=== PATIENT | female | born 1980 | race Caucasian/White ===

== ENCOUNTER 2017-01-26 20:49 | Emergency (ER) | payer MEDICAID, OTHER ==
[~2017-01-26] VITALS: Ht 170.2 cm; Wt 80.0 kg
[~2017-01-26 20:49] MED LIST: FLUT50SP EACH NARE; NAPR500T PO; ONDA4TAB7 SL; PSYLPOW4 PO; SPIR25TA PO
[2017-01-26 21:08] VITALS: BP 116/79; PULSE 99; RESP 18; TEMP 99.4; O2SAT 97
[2017-01-26] MEDS ORDERED: CEFD300C PO (21:25)
--- NOTE | 2017-01-26 21:59 | PD ---
HPI Chief Complaint: Complaint Time Seen by Provider: 21:20 Travel History International Travel<30 days: No Contact w/Intl Traveler<30days: No Traveled to known affect area: No History of Present Illness HPI This 36-year-old female is complaining of some pain in her lower back. She's been having this for a couple of weeks. His been no vomiting or diarrhea. She went to her doctor and apparently had a vaginal swab which grew Escherichia coli. She was negative for gonorrhea and chlamydia. She has been on cefdinir. She is complaining of back pain is aggravated by movement. She does not recall injury there is no numbness or tingling PFSH Past Medical History Anxiety: Yes Depression: Yes Cancer: No Cardiovascular Problems: Yes (HX TRICUSPID DIS. 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) Genitourinary: Yes (HERPES VIRUS) Hepatitis: No Hiatal Hernia: No Hypertension: No Immune Disorder: No Musculoskeletal: Yes (BACK SPASMS, ARTHRITIS) Neurologic: No Psychiatric: Yes (ANXIETY, CLAUSTRAPHOBIA) Reproductive: No Respiratory: Yes (MARIJUANA ADDICTION) Shingles: Yes Thyroid Disease: No Tetanus Vaccination: Never Vaccinated PNEUMOCCOCAL Vaccine (Year): 2 ?: Not : 4 Para: 2 Miscarriage: 1 : 1 Ovarian Cysts: Yes Dilation and Curettage (D&C): Yes Tubal Ligation: Yes (right) Past Surgical History Abdominal Surgery: Yes (umbilical hernia repair) AICD: No Body Medical Devices: UMBILICAL MESH Ear Surgery: No Eye Surgery: No Genitourinary Surgery: No Gynecologic Surgery: Yes (D & C, RIGHT TUBAL LIGATION (CYSTIC)) Joint Replacement: No Oral Surgery: No Pacemaker: No Other Surgery: Yes Social History Alcohol Use: No Tobacco Use: Yes (10/24 ppd) Substance Use: No Allergies-Medications (Allergen,Severity, Reaction): Coded Allergies: Hydrocodone (Unverified Allergy, Intermediate, HIVES, UPSET STOMACH, ) Nonsteroidal Anti-Inflammatory Agts (Verified Allergy, Intermediate, Nausea/Vomiting, 01/26/17) Sulfa (Verified Allergy, Intermediate, Rash, 01/26/17) Toradol (Verified Allergy, Intermediate, UPSET STOMACH, 01/26/17) Tramadol (Verified Allergy, Intermediate, Rash, 01/26/17) Flagyl (Verified Adverse Reaction, Intermediate, UPSET STOMACH, 01/26/17) Uncoded Allergies: narcotics (Adverse Reaction, Mild, 01/26/17) stomach ache Reported Meds & Prescriptions Reported Meds & Active Scripts Active Spironolactone 25 Mg Tab 25 Mg PO BID Reported Cefdinir 300 Mg Cap 300 Mg PO BID Review of Systems General / Constitutional: No: Fever, Chills Eyes: No: Diploplia, Blurred Vision HENT: No: Headaches, Vertigo Cardiovascular: No: Chest Pain or Discomfort, Palpitations Respiratory: No: Shortness of Breath, Wheezing Gastrointestinal: No: Nausea, Vomiting Genitourinary: No: Urgency, Frequency Musculoskeletal: Positive: Myalgias, Pain, No: Arthralgias Skin: No Rash, No Itching Hematologic/Lymphatic: No: Easy Bruising Physical Exam Narrative GENERAL: Well-developed female SKIN: Focused skin assessment warm/dry. HEAD: Atraumatic. Normocephalic. EYES: Pupils equal and round. No scleral icterus. No injection or drainage. ENT: No nasal bleeding or discharge. Mucous membranes pink and moist. NECK: Trachea midline. No JVD. CARDIOVASCULAR: Regular rate and rhythm. No murmur appreciated. RESPIRATORY: No accessory muscle use. Clear to auscultation. Breath sounds equal bilaterally. GASTROINTESTINAL: Abdomen soft, non-tender, nondistended. Hepatic and splenic margins not palpable. MUSCULOSKELETAL: No obvious deformities. No clubbing. No cyanosis. No edema. There is some tenderness in the low back. It is not well localized. NEUROLOGICAL: Awake and alert. No obvious cranial nerve deficits. Motor grossly within normal limits. Normal speech. Leg strength is symmetric PSYCHIATRIC: Appropriate mood and affect; insight and judgment normal. Data Data Last Documented VS Vital Signs Date Time Temp Pulse Resp B/P Pulse Ox O2 Delivery O2 Flow Rate FiO2 01/26/17 21:08 99.4 99 18 116/79 97 Orders Complete Blood Count With Diff (01/26/17 21:57) Basic Metabolic Panel (Bmp) (01/26/17 21:57) Urinalysis - C+S If Indicated (01/26/17 21:57) Labs Laboratory Tests Test 01/26/17 01/26/17 22:00 22:09 Urine Color YELLOW Urine Turbidity CLEAR Urine pH 6.0 Urine Specific [place] 1.007 Urine Protein NEG mg/dL Urine Glucose (UA) NEG mg/dL Urine Ketones NEG mg/dL Urine Occult Blood TRACE Urine Nitrite NEG Urine Bilirubin NEG Urine Leukocyte Esterase SMALL Urine RBC 0-3 /hpf Urine WBC 0-2 /hpf Urine Squamous Epithelial > 8 /hpf Cells Microscopic Urinalysis Comment CULT NOT INDICATED White Blood Count 8.0 TH/MM3 Red Blood Count 3.97 MIL/MM3 Hemoglobin 12.5 GM/DL Hematocrit 37.7 % Mean Corpuscular Volume 94.8 FL Mean Corpuscular Hemoglobin 31.4 PG Mean Corpuscular Hemoglobin 33.2 % Concent Red Cell Distribution Width 12.8 % Platelet Count 255 TH/MM3 Mean Platelet Volume 7.7 FL Neutrophils (%) (Auto) 56.0 % Lymphocytes (%) (Auto) 34.4 % Monocytes (%) (Auto) 6.4 % Eosinophils (%) (Auto) 2.8 % Basophils (%) (Auto) 0.4 % Neutrophils # (Auto) 4.5 TH/MM3 Lymphocytes # (Auto) 2.8 TH/MM3 Monocytes # (Auto) 0.5 TH/MM3 Eosinophils # (Auto) 0.2 TH/MM3 Basophils # (Auto) 0.0 TH/MM3 CBC Comment DIFF FINAL Differential Comment Sodium Level 139 MEQ/L Potassium Level 4.0 MEQ/L Chloride Level 107 MEQ/L Carbon Dioxide Level 25.0 MEQ/L Anion Gap 7 MEQ/L Blood Urea Nitrogen 7 MG/DL Creatinine 0.68 MG/DL Estimat Glomerular Filtration 97 ML/MIN Rate Random Glucose 115 MG/DL Calcium Level 9.1 MG/DL [facility] Medical Decision Making Medical Screen Exam Complete: Yes Emergency Medical Condition: Yes Medical Record Reviewed: Yes Differential Diagnosis Differential includes UTI, renal colic, musculoskeletal back pain Narrative Course Blood work and urine are negative. This is musculoskeletal back pain. She has trouble with her stomach and cannot take anti-inflammatory medications. I will recommend that she take Tylenol and Flexeril Diagnosis Primary Impression: Musculoskeletal back pain Scripts Cyclobenzaprine (Flexeril)10 Mg Tab10 Mg PO TID #30 TAB Ref 0 Prov:Luis Angel Sidhu MD 01/26/17 Disposition: 01 DISCHARGE HOME Condition: Stable Luis Angel Sidhu MD Jan 26, 2017 21:59
[2017-01-26 22:08] LABS: BLOOD, URINE TRACE (NEG); GLUCOSE,URINE NEG (NEG); KETONE, URINE NEG (NEG); NITRITE,URINE NEG (NEG)
[2017-01-26 22:12] LABS: URINE COLOR YELLOW (YELLW/STRAW)
[2017-01-26 22:13] LABS: COMMENT (UR) CULT NOT INDICATED; CULTURE IF INDICATED CULT NOT INDICATED; RBC, URINE 0-3 /hpf (0-3); SQUAMOUS EPITHELIAL CELL URINE > 8 /hpf (0-5); WBC, URINE 0-2 /hpf (0-5)
[2017-01-26 22:18] LABS: AUTOMATED NEUTROPHIL # 4.5 TH/MM3 (1.8-7.7); BASOPHIL % 0.4 % (0.0-2.0); EOSINOPHIL # 0.2 TH/MM3 (0-0.4); EOSINOPHIL % 2.8 % (0.0-4.0); HEMATOCRIT 37.7 % (35.0-46.0); HEMO FLAGS DIFF FINAL; LYMPH % 34.4 % (9.0-44.0); LYMPHOCYTE # 2.8 TH/MM3 (1.0-4.8); MEAN CELL VOLUME 94.8 FL (80.0-100.0); MEAN CORPUSCULAR HEMOGLOBIN 31.4 PG (27.0-34.0); MEAN CORPUSCULAR HGB CONC 33.2 % (32.0-36.0); MONO % 6.4 % (0.0-8.0); PLATELET COUNT 255 TH/MM3 (150-450); RED BLOOD COUNT 3.97 MIL/MM3 (4.00-5.30); RED CELL DISTRIBUTION WIDTH 12.8 % (11.6-17.2)
[2017-01-26] MEDS ORDERED: CYCL1TAB29 PO (23:14)
[2017-01-26] MEDS ORDERED: ACETAMINOPHEN 325 MG TAB PO ONE (23:15)
[2017-01-30] MEDS ORDERED: SPIR25TA PO (11:42)
[2017-02-09] MEDS ORDERED: FLUC150T PO (15:04)
[2017-02-09] MEDS ORDERED: CLIN2CRE VAGINAL (15:04)
[2017-03-08] MEDS ORDERED: ZOFR4TAB3 SL (17:13)
[2017-03-08] MEDS ORDERED: SPIR25TA PO (17:13)
[2017-04-12] MEDS ORDERED: SPIR25TA PO (23:21)
== END 2017-01-26 23:43 | disposition home or self-care (01) ==
LOC: PHED 20:49
DX: M54.5 Low back pain (principal); F17.200 Nicotine dependence, unspecified, uncomplicated; Z86.59 Personal history of other mental and behavioral disorders; Z86.79 Personal history of other diseases of the circulatory system; Z87.19 Personal history of other diseases of the digestive system; Z87.448 Personal history of other diseases of urinary system; Z87.39 Personal history of other diseases of the musculoskeletal system and connective tissue; Z86.69 Personal history of other diseases of the nervous system and sense organs; Z87.42 Personal history of other diseases of the female genital tract
CPT/HCPCS: 80048; 81001; 85025; 99283

== ENCOUNTER 2017-06-04 21:23 | Emergency (ER) | payer MEDICAID, OTHER ==
[~2017-06-04] VITALS: Ht 170.2 cm; Wt 78.7 kg
[~2017-06-04 21:23] MED LIST changes: +CLIN2CRE VAGINAL; +CYCL1TAB29 PO; +FLUC150T PO; -FLUT50SP EACH NARE; -NAPR500T PO; -ONDA4TAB7 SL; -PSYLPOW4 PO; +ZOFR4TAB3 SL
[2017-06-04 21:29] VITALS: BP 123/64; PULSE 84; RESP 20; TEMP 98.8; O2SAT 99
--- NOTE | 2017-06-04 22:00 | PD ---
HPI Chief Complaint: Back/ Neck Pain or Injury Time Seen by Provider: 21:52 Travel History International Travel<30 days: No Contact w/Intl Traveler<30days: No Traveled to known affect area: No History of Present Illness HPI 36-year-old female presents to the emergency room for evaluation of acute on chronic back pain. Patient started a new job 3 weeks ago and states over the past week she has had increasing mid, bilateral back pain. States she had to leave work early on because her pain was severe. She has tried Tylenol , back braces, and NSAIDs without any relief in symptoms. 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 States after 1-2 hours of doing this she begins to develop severe, sharp , aching back pain. PFSH Past Medical History Anxiety: Yes Depression: Yes Cancer: No Cardiovascular Problems: Yes (HX TRICUSPID DIS. 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) Genitourinary: Yes (HERPES VIRUS) Hepatitis: No Hiatal Hernia: No Hypertension: No Immune Disorder: No Musculoskeletal: Yes (BACK SPASMS, ARTHRITIS) Neurologic: No Psychiatric: Yes (ANXIETY, CLAUSTRAPHOBIA) Reproductive: No Respiratory: Yes (MARIJUANA ADDICTION) Immunizations Current: Yes Shingles: Yes Thyroid Disease: No Tetanus Vaccination: > 5 Years Influenza Vaccination: No PNEUMOCCOCAL Vaccine (Year): 2 ?: Not LMP: now : 4 Para: 2 Miscarriage: 1 : 1 Ovarian Cysts: Yes Dilation and Curettage (D&C): Yes Tubal Ligation: Yes (right) Past Surgical History Abdominal Surgery: Yes (umbilical hernia repair) AICD: No Body Medical Devices: UMBILICAL MESH Ear Surgery: No Eye Surgery: No Genitourinary Surgery: No Gynecologic Surgery: Yes (D & C, RIGHT TUBAL LIGATION (CYSTIC)) Joint Replacement: No Oral Surgery: No Pacemaker: No Other Surgery: Yes Social History Alcohol Use: No Tobacco Use: Yes (/2 ppd) Substance Use: No Allergies-Medications (Allergen,Severity, Reaction): Coded Allergies: Hydrocodone (Unverified Allergy, Intermediate, HIVES, UPSET STOMACH, ) Nonsteroidal Anti-Inflammatory Agts (Verified Allergy, Intermediate, Nausea/Vomiting, 02/09/17) Sulfa (Verified Allergy, Intermediate, Rash, 02/09/17) Toradol (Verified Allergy, Intermediate, UPSET STOMACH, 02/09/17) Tramadol (Verified Allergy, Intermediate, Rash, 02/09/17) Flagyl (Verified Adverse Reaction, Intermediate, UPSET STOMACH, 02/09/17) Uncoded Allergies: narcotics (Adverse Reaction, Mild, 01/26/17) stomach ache Reported Meds & Prescriptions Reported Meds & Active Scripts Active Spironolactone 25 Mg Tab 25 Mg PO BID Zofran Odt (Ondansetron Odt) 4 Mg Tab 4 Mg SL Q6HR PRN Clindamycin Vaginal Cream (Clindamycin Phosphate) 2% Cream 1 Appl VAGINAL HS Fluconazole 150 Mg Tab 150 Mg PO ONCE Flexeril (Cyclobenzaprine HCl) 10 Mg Tab 10 Mg PO TID Review of Systems Except as stated in HPI: all other systems reviewed are Neg Physical Exam Narrative GENERAL: Well-nourished, well-developed female in no acute distress. Afebrile. Ambulatory. SKIN: Focused skin assessment warm/dry. HEAD: Normocephalic. EYES: No scleral icterus. No injection or drainage. NECK: Supple, trachea midline. No JVD or lymphadenopathy. CARDIOVASCULAR: Regular rate and rhythm without murmurs, gallops, or rubs. RESPIRATORY: Breath sounds equal bilaterally. No accessory muscle use. BACK: Nontender without obvious deformity. No CVA tenderness. Data Data Last Documented VS Vital Signs Date Time Temp Pulse Resp B/P Pulse Ox O2 Delivery O2 Flow Rate FiO2 06/04/17 21:29 98.8 84 20 123/64 99 MDM Medical Decision Making Medical Screen Exam Complete: Yes Emergency Medical Condition: Yes Medical Record Reviewed: Yes Differential Diagnosis Acute on chronic back pain, muscle strain, muscle spasm Narrative Course 36-year-old female presents to the emergency room for evaluation of mid back pain for the past week. 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 Denies trauma or injury to her back. No midline tenderness. I suspect patient has thoracic back strain from reaching over a conveyor belt for 12 hours at a time in this new setting. She was instructed that exercising her back and building muscle will decrease pain. Patient was told to take Tylenol for pain and follow up with primary care physician or return for worsening symptoms. She understands and agrees to plan. Diagnosis Primary Impression: Upper back strain Qualified Code: S29.012A - Upper back strain, initial encounter Referrals: Primary Care Physician Patient Instructions: General Instructions, Thoracic Back Strain (ED) Departure Forms: Tests/Procedures, Work Release Enter return to work date: Jun 06, 2017 Additional Instructions: Rest and drink plenty of fluids. Take Tylenol as directed, as needed for pain. Apply ice to the affected area for 20 minutes at a time, as needed for pain and swelling. Follow-up with a primary care physician. Return to the emergency room for worsening symptoms. Disposition: 01 DISCHARGE HOME Condition: Stable Sarah Beth Hussein Jun 04, 2017 22:00
[2017-06-05] MEDS ORDERED: PROZ20CA11 PO (14:38)
[2017-06-05] MEDS ORDERED: LUMBAR BACK BRA1 MIS ×2 (14:40→16:37)
[2017-06-09] MEDS ORDERED: MEDR150I IM (10:58)
[2017-06-09] MEDS ORDERED: DEPO150I IM (14:36)
[2017-06-14] MEDS ORDERED: METR500T10 PO (11:03)
[2017-06-14] MEDS ORDERED: CLIN2CRE VAGINAL (11:03)
== END 2017-06-04 22:17 | disposition home or self-care (01) ==
LOC: PHEFT 21:23
DX: S29.012A Strain of muscle and tendon of back wall of thorax, initial encounter (principal); F17.200 Nicotine dependence, unspecified, uncomplicated; Z86.59 Personal history of other mental and behavioral disorders; Z86.79 Personal history of other diseases of the circulatory system; Z87.19 Personal history of other diseases of the digestive system; Z87.448 Personal history of other diseases of urinary system; Z87.39 Personal history of other diseases of the musculoskeletal system and connective tissue; Z86.69 Personal history of other diseases of the nervous system and sense organs; X58.XXXA Exposure to other specified factors, initial encounter
CPT/HCPCS: 99282

== ENCOUNTER 2017-07-04 16:34 | Emergency (ER) | payer SELFPAY ==
[~2017-07-04 16:34] MED LIST changes: +LUMBAR BACK BRA1 MIS; +MEDR150I IM; +METR500T10 PO; +PROZ20CA11 PO
[2017-07-04 16:37] VITALS: BP 129/94; PULSE 83; RESP 20; TEMP 97.8; O2SAT 98
== END 2017-07-04 19:05 | disposition left against medical advice (07) ==
LOC: PHED 16:34
DX: Z53.9 Procedure and treatment not carried out, unspecified reason (principal)
CPT/HCPCS: 99281

== ENCOUNTER 2017-09-08 18:21 | Emergency (ER) | payer OTHER ==
[~2017-09-08] VITALS: Ht 170.2 cm; Wt 81.0 kg
[~2017-09-08 18:21] MED LIST changes: +CYCL10TA PO; -CYCL1TAB29 PO; +METR1TAB76 PO; -METR500T10 PO
[2017-09-08 18:26] VITALS: BP 139/66; PULSE 82; RESP 16; TEMP 97.6; O2SAT 100
--- NOTE | 2017-09-08 18:50 | PD ---
HPI Chief Complaint: GI Complaint Time Seen by Provider: 18:38 Travel History International Travel<30 days: No Contact w/Intl Traveler<30days: No Traveled to known affect area: No History of Present Illness HPI The patient is a 36-year-old female who presents emergency department for medication request. The patient is requesting that we refill and inject her control, Depo-Provera. The patient states that she last had her Depo- Provera injection several months ago, called her pharmacy and they stated she was due for Depo-Provera. However, the patient with her primary physician normally writes for her Depo-Provera and found out that they would no longer see her because she missed several appointments. The patient states she missed several appointments because she is in a working pool and sometimes doesn't know she is going to work till that day. The patient is followed by a shoer in [place], [place]. The patient states she's had some mild nausea since she has not received her Depo-Provera as well as occasional intermittent abdominal pain that she contributes to her ovarian cysts that she gets monthly. She does note feeling episodes of nausea without any significant vomiting and was able to tolerate soda on the way to the emergency department. She denies any fever, chills, or sweats. 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) Genitourinary: Yes (HERPES VIRUS) Hepatitis: No Hiatal Hernia: No Hypertension: No Immune Disorder: No Musculoskeletal: Yes (BACK SPASMS, ARTHRITIS) Neurologic: No Psychiatric: Yes (ANXIETY, CLAUSTRAPHOBIA) Reproductive: No Respiratory: Yes (MARIJUANA ADDICTION) Immunizations Current: Yes Shingles: Yes Thyroid Disease: No Influenza Vaccination: No PNEUMOCCOCAL Vaccine (Year): 2 ?: Not : 4 Para: 2 Miscarriage: 1 : 1 Ovarian Cysts: Yes Dilation and Curettage (D&C): Yes Tubal Ligation: Yes (right) Past Surgical History Abdominal Surgery: Yes (umbilical hernia repair) AICD: No Body Medical Devices: UMBILICAL MESH Ear Surgery: No Eye Surgery: No Genitourinary Surgery: No Gynecologic Surgery: Yes (D & C, RIGHT TUBAL LIGATION (CYSTIC)) Joint Replacement: No Oral Surgery: No Pacemaker: No Other Surgery: Yes Social History Alcohol Use: No Tobacco Use: No Substance Use: No Allergies-Medications (Allergen,Severity, Reaction): Coded Allergies: Sulfa (Sulfonamide Antibiotics) (Unverified Allergy, Intermediate, Rash, 09/08/17) diclofenac (Unverified Allergy, Intermediate, Nausea/Vomiting, 09/08/17) etodolac (Unverified Allergy, Intermediate, Nausea/Vomiting, 09/08/17) flurbiprofen (Unverified Allergy, Intermediate, Nausea/Vomiting, 09/08/17) hydrocodone (Unverified Allergy, Intermediate, HIVES, UPSET STOMACH, 09/08) ibuprofen (Unverified Allergy, Intermediate, Nausea/Vomiting, 09/08/17) indomethacin (Unverified Allergy, Intermediate, Nausea/Vomiting, 09/08/17) ketoprofen (Unverified Allergy, Intermediate, Nausea/Vomiting, 09/08/17) ketorolac (Unverified Allergy, Intermediate, UPSET STOMACH, 09/08/17) naproxen (Unverified Allergy, Intermediate, Nausea/Vomiting, 09/08/17) oxaprozin (Unverified Allergy, Intermediate, Nausea/Vomiting, 09/08/17) tramadol (Unverified Allergy, Intermediate, Rash, 09/08/17) metronidazole (Unverified Adverse Reaction, Intermediate, UPSET STOMACH, 09/08/17) Uncoded Allergies: narcotics (Adverse Reaction, Mild, 01/26/17) stomach ache Reported Meds & Prescriptions Reported Meds & Active Scripts Active Medroxyprogesterone Inj 150 Mg/Ml Inj 150 Mg IM ONCE Spironolactone 25 Mg Tab 25 Mg PO BID Review of Systems Except as stated in HPI: all other systems reviewed are Neg Cardiovascular: No: Chest Pain or Discomfort Respiratory: No: Shortness of Breath Gastrointestinal: Positive: Nausea, No: Abdominal Pain Genitourinary: Positive: Pelvic Pain Physical Exam Narrative GENERAL: Awake, alert, pleasant 36-year-old female who appears her stated age and is in no acute respiratory distress. SKIN: Focused skin assessment warm/dry. HEAD: Atraumatic. Normocephalic. EYES: No injection or drainage. MUSCULOSKELETAL: No obvious deformities. No clubbing. No cyanosis. No edema. NEUROLOGICAL: Awake and alert. No obvious cranial nerve deficits. Motor grossly within normal limits. Normal speech. PSYCHIATRIC: Appropriate mood and affect; insight and judgment normal. Data Data Last Documented VS Vital Signs Date Time Temp Pulse Resp B/P (MAP) Pulse Ox O2 Delivery O2 Flow Rate FiO2 09/08/17 18:26 97.6 82 16 139/66 (90) 100 MDM Medical Decision Making Medical Screen Exam Complete: Yes Emergency Medical Condition: Yes Medical Record Reviewed: Yes Differential Diagnosis Differential diagnosis includes medication requests, medication refill, gastritis, gastroenteritis, ovarian cyst. Narrative Course I had a discussion with the patient regarding her shoer refilling her Depo-Provera. I told the patient I do not refill control or control injections in emergency department. She is advised to follow-up with her shoer. I did offer the patient to do a workup in regards to her nausea, vomiting, and abdominal pain. However, she declined and states she will follow-up with her shoer. The patient states she simply wanted her Depo-Provera injection and wants no further workup or analysis. Diagnosis Primary Impression: Encounter for medication management Patient Instructions: General Instructions Additional Instructions: Follow-up with your shoer in regards to your Depo-Provera. Return if symptoms worsen or progress. Med/Other Pt SpecificInfo: No Change to Meds Disposition: 01 DISCHARGE HOME Condition: Stable Marvin Watkins MD Sep 08, 2017 18:50
[2017-09-11] MEDS ORDERED: SPIR25TA PO (12:43)
[2017-09-11] MEDS ORDERED: MEDR150I IM (15:22)
== END 2017-09-08 19:10 | disposition home or self-care (01) ==
LOC: PHED 18:21
DX: R11.0 Nausea (principal); Z30.42 Encounter for surveillance of injectable contraceptive
CPT/HCPCS: 99281

== ENCOUNTER 2017-11-12 10:26 | Emergency (ER) | payer OTHER ==
[~2017-11-12] VITALS: Ht 170.2 cm; Wt 74.5 kg
[~2017-11-12 10:26] MED LIST changes: -CLIN2CRE VAGINAL; -CYCL10TA PO; -FLUC150T PO; -LUMBAR BACK BRA1 MIS; -METR1TAB76 PO; -PROZ20CA11 PO; -ZOFR4TAB3 SL
[2017-11-12 10:31] VITALS: BP 118/74; PULSE 118; RESP 12; TEMP 98.7; O2SAT 99
[2017-11-12] MEDS ORDERED: MEBE1CHW14 PO (11:20)
--- NOTE | 2017-11-12 11:25 | PD ---
HPI Chief Complaint: Skin Problem Time Seen by Provider: 11:03 Travel History International Travel<30 days: No Contact w/Intl Traveler<30days: No Traveled to known affect area: No History of Present Illness HPI The patient was seen and examined in the presence of the nurse. At no point in time was I in the room without the nurse present. This patient is concerned that she has worms in her stool. She says that she saw them after bowel movement and they were moving. She is denying abdominal or pelvic or rectal pain. She said she discuss this with her primary physician but she couldn't give a sample because she was constipated at the time so no treatment was given. Symptoms severity is mild. 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) Genitourinary: Yes (HERPES VIRUS) Hepatitis: No Hiatal Hernia: No Hypertension: No Immune Disorder: No Musculoskeletal: Yes (BACK SPASMS, ARTHRITIS) Neurologic: No Psychiatric: Yes (ANXIETY, CLAUSTRAPHOBIA) Reproductive: No Respiratory: Yes (MARIJUANA ADDICTION) Immunizations Current: Yes Shingles: Yes Thyroid Disease: No PNEUMOCCOCAL Vaccine (Year): 2 ?: Not : 4 Para: 2 Miscarriage: 1 : 1 Ovarian Cysts: Yes Dilation and Curettage (D&C): Yes Tubal Ligation: Yes (right) Past Surgical History Abdominal Surgery: Yes (umbilical hernia repair) AICD: No Body Medical Devices: UMBILICAL MESH Ear Surgery: No Eye Surgery: No Genitourinary Surgery: No Gynecologic Surgery: Yes (D & C, RIGHT TUBAL LIGATION (CYSTIC)) Joint Replacement: No Oral Surgery: No Pacemaker: No Other Surgery: Yes Social History Alcohol Use: No Tobacco Use: No Substance Use: No Allergies-Medications (Allergen,Severity, Reaction): Coded Allergies: Sulfa (Sulfonamide Antibiotics) (Unverified Allergy, Intermediate, Rash, ) diclofenac (Unverified Allergy, Intermediate, Nausea/Vomiting, 11/12/17) etodolac (Unverified Allergy, Intermediate, Nausea/Vomiting, 11/12/17) flurbiprofen (Unverified Allergy, Intermediate, Nausea/Vomiting, 11/12/17) hydrocodone (Unverified Allergy, Intermediate, HIVES, UPSET STOMACH, ) ibuprofen (Unverified Allergy, Intermediate, Nausea/Vomiting, 11/12/17) indomethacin (Unverified Allergy, Intermediate, Nausea/Vomiting, 11/12/17) ketoprofen (Unverified Allergy, Intermediate, Nausea/Vomiting, 11/12/17) ketorolac (Unverified Allergy, Intermediate, UPSET STOMACH, 11/12/17) naproxen (Unverified Allergy, Intermediate, Nausea/Vomiting, 11/12/17) oxaprozin (Unverified Allergy, Intermediate, Nausea/Vomiting, 11/12/17) tramadol (Unverified Allergy, Intermediate, Rash, 11/12/17) metronidazole (Unverified Adverse Reaction, Intermediate, UPSET STOMACH, ) Uncoded Allergies: narcotics (Adverse Reaction, Mild, 01/26/17) stomach ache Reported Meds & Prescriptions Reported Meds & Active Scripts Active Medroxyprogesterone Inj 150 Mg/Ml Inj 150 Mg IM ONCE Spironolactone 25 Mg Tab 25 Mg PO BID Review of Systems General / Constitutional: No: Fever HENT: No: Headaches Cardiovascular: No: Chest Pain or Discomfort Physical Exam Narrative GASTROINTESTINAL: Abdomen soft, non-tender, nondistended. Positive bowel sounds. No hepato-splenomegaly, or palpable masses. No guarding. SKIN: Focused skin assessment reveals no rash or ulcers. Skin is warm and dry. Palpation shows no induration or nodules. Patient has multiple picked at scabbed lesions on both forearms. These do not look infectious Data Data Last Documented VS Vital Signs Date Time Temp Pulse Resp B/P (MAP) Pulse Ox O2 Delivery O2 Flow Rate FiO2 11/12/17 10:31 98.7 118 12 118/74 (89) 99 MDM Medical Decision Making Medical Screen Exam Complete: Yes Emergency Medical Condition: Yes Medical Record Reviewed: Yes Differential Diagnosis psychiatric delusion, pinworms, Giardia Narrative Course I have reviewed the patient's electronic medical record. This patient is concerned about having pinworms. I'm not sure she has them or not. I did write her a movement is all treatment and she can repeat it in 2 weeks for a near 100% cure rate of pinworms She should discuss with her family physician Stable for outpatient follow-up Diagnosis Primary Impression: Pinworms Additional Instructions: The patient was advised to follow up with their physician and return if they worsen. Med/Other Pt SpecificInfo: Prescription(s) given Scripts Mebendazole (Emverm) 100 Mg Chew 100 MG PO ONCE for Worms, #2 TAB 0 Refills Prov: Carlos Allen MD 11/12/17 Disposition: 01 DISCHARGE HOME Condition: Stable Carlos Allen MD Nov 12, 2017 11:25
== END 2017-11-12 11:34 | disposition home or self-care (01) ==
LOC: NEPD 10:26
DX: B80 Enterobiasis (principal); F41.9 Anxiety disorder, unspecified; F32.9 Major depressive disorder, single episode, unspecified; M19.90 Unspecified osteoarthritis, unspecified site; F40.240 Claustrophobia; F12.20 Cannabis dependence, uncomplicated; Z87.19 Personal history of other diseases of the digestive system; Z79.899 Other long term (current) drug therapy; Z88.2 Allergy status to sulfonamides
CPT/HCPCS: 99283

== ENCOUNTER 2017-11-13 18:05 | Emergency (ER) | payer OTHER | END 2017-11-13 21:57 | disposition left against medical advice (07) | LOC: NED 21:57 | DX: K62.5 Hemorrhage of anus and rectum (principal) | CPT/HCPCS: 99281 ==

== ENCOUNTER 2017-11-14 13:34 | Emergency (ER) | payer OTHER ==
[~2017-11-14 13:34] MED LIST changes: +MEBE1CHW14 PO
[2017-11-14 13:40] VITALS: BP 115/73; PULSE 101; RESP 16; TEMP 98.5; O2SAT 100
[2017-11-14] MEDS ORDERED: SODIUM CHLORIDE 0.9% FLUSH 10 ML FLUSH IV FLUSH PRN (14:30)
[2017-11-14] MEDS ORDERED: ADDE30TA PO (14:37)
--- NOTE | 2017-11-14 14:40 | PD ---
HPI Chief Complaint: GI Complaint Time Seen by Provider: 14:25 Travel History International Travel<30 days: No Contact w/Intl Traveler<30days: No Traveled to known affect area: No History of Present Illness HPI 37 y/o female presents with concerned that now she is having intermittent rectal bleeding and abdominal cramping and that the parasites are not going away. She states that she is concerned that she could be anemic. She states that she knows she doesn't have pinworms because those are small and she cannot afford the medication and he weighs. Quality is bright red. Severity is a couple episodes. She is worried she has not had blood work yet. She denies any other concurrent complaints. Patient was seen in the presence of the nurse. 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) Genitourinary: Yes (HERPES VIRUS) Hepatitis: No Hiatal Hernia: No Hypertension: No Immune Disorder: No Medical other: No Musculoskeletal: Yes (BACK SPASMS, ARTHRITIS) Neurologic: No Psychiatric: Yes (ANXIETY, CLAUSTRAPHOBIA) Reproductive: No Respiratory: Yes (MARIJUANA ADDICTION) Immunizations Current: Yes Shingles: Yes Thyroid Disease: No PNEUMOCCOCAL Vaccine (Year): 2 ?: Not : 4 Para: 2 Miscarriage: 1 : 1 Ovarian Cysts: Yes Dilation and Curettage (D&C): Yes Tubal Ligation: Yes (right) Past Surgical History Abdominal Surgery: Yes (umbilical hernia repair) AICD: No Body Medical Devices: UMBILICAL MESH Ear Surgery: No Eye Surgery: No Genitourinary Surgery: No Gynecologic Surgery: Yes (D & C, RIGHT TUBAL LIGATION (CYSTIC)) Joint Replacement: No Oral Surgery: No Pacemaker: No Other Surgery: Yes Social History Alcohol Use: No Tobacco Use: No Substance Use: No Allergies-Medications (Allergen,Severity, Reaction): Coded Allergies: Sulfa (Sulfonamide Antibiotics) (Unverified Allergy, Intermediate, Rash, ) diclofenac (Unverified Allergy, Intermediate, Nausea/Vomiting, 11/14/17) etodolac (Unverified Allergy, Intermediate, Nausea/Vomiting, 11/14/17) flurbiprofen (Unverified Allergy, Intermediate, Nausea/Vomiting, 11/14/17) hydrocodone (Unverified Allergy, Intermediate, HIVES, UPSET STOMACH, ) ibuprofen (Unverified Allergy, Intermediate, Nausea/Vomiting, 11/14/17) indomethacin (Unverified Allergy, Intermediate, Nausea/Vomiting, 11/14/17) ketoprofen (Unverified Allergy, Intermediate, Nausea/Vomiting, 11/14/17) ketorolac (Unverified Allergy, Intermediate, UPSET STOMACH, 11/14/17) naproxen (Unverified Allergy, Intermediate, Nausea/Vomiting, 11/14/17) oxaprozin (Unverified Allergy, Intermediate, Nausea/Vomiting, 11/14/17) tramadol (Unverified Allergy, Intermediate, Rash, 11/14/17) metronidazole (Unverified Adverse Reaction, Intermediate, UPSET STOMACH, ) Uncoded Allergies: narcotics (Adverse Reaction, Mild, 01/26/17) stomach ache Reported Meds & Prescriptions Reported Meds & Active Scripts Active Medroxyprogesterone Inj 150 Mg/Ml Inj 150 Mg IM ONCE Spironolactone 25 Mg Tab 25 Mg PO BID Reported Adderall (Amphetamine-Dextroamphetamine) 30 Mg Tab 30 Mg PO DAILY Avoid late evening doses. Space doses at least 4 to 6 hours if more than once/day dosing. Review of Systems Except as stated in HPI: all other systems reviewed are Neg Physical Exam Narrative GENERAL: Well-nourished, well-developed patient. SKIN: Warm and dry. HEAD: Normocephalic and atraumatic. EYES: No injection or drainage. ENT: No nasal drainage noted. NECK: Supple, trachea midline. CARDIOVASCULAR: Regular rate and rhythm RESPIRATORY: No increased effort. No accessory muscle use. GASTROINTESTINAL: Abdomen soft, non-tender, nondistended. RECTAL EXAM: Performed with damage prevention coordinator and after permission. No external hemorrhoid or fissure, stool is brown, non-bloody. No visible parasite noted NEUROLOGICAL: Awake and alert. Motor and sensory grossly within normal limits. Normal speech. Data Data Last Documented VS Vital Signs Date Time Temp Pulse Resp B/P (MAP) Pulse Ox O2 Delivery O2 Flow Rate FiO2 11/14/17 13:40 98.5 101 16 115/73 (87) 100 Orders Orders Complete Blood Count With Diff (11/14/17 14:25) Comprehensive Metabolic Panel (11/14/17 14:25) Lipase (11/14/17 14:25) Iv Access Insert/Monitor (11/14/17 14:25) Sodium Chloride 0.9% Flush (Ns Flush) (11/14/17 14:30) Ed Discharge Order (11/14/17 16:31) Labs Laboratory Tests Test 11/14/17 15:40 White Blood Count 6.9 TH/MM3 Red Blood Count 4.03 MIL/MM3 Hemoglobin 12.5 GM/DL Hematocrit 38.0 % Mean Corpuscular Volume 94.2 FL Mean Corpuscular Hemoglobin 31.1 PG Mean Corpuscular Hemoglobin Concent 33.0 % Red Cell Distribution Width 12.0 % Platelet Count 220 TH/MM3 Mean Platelet Volume 7.9 FL Neutrophils (%) (Auto) 49.5 % Lymphocytes (%) (Auto) 41.3 % Monocytes (%) (Auto) 6.7 % Eosinophils (%) (Auto) 1.8 % Basophils (%) (Auto) 0.7 % Neutrophils # (Auto) 3.4 TH/MM3 Lymphocytes # (Auto) 2.9 TH/MM3 Monocytes # (Auto) 0.5 TH/MM3 Eosinophils # (Auto) 0.1 TH/MM3 Basophils # (Auto) 0.0 TH/MM3 CBC Comment DIFF FINAL Differential Comment Blood Urea Nitrogen 6 MG/DL Creatinine 0.69 MG/DL Random Glucose 97 MG/DL Total Protein 7.0 GM/DL Albumin 3.7 GM/DL Calcium Level 9.2 MG/DL Alkaline Phosphatase 45 U/L Aspartate Amino Transf (AST/SGOT) 10 U/L Alanine Aminotransferase (ALT/SGPT) 15 U/L Total Bilirubin 0.4 MG/DL Sodium Level 138 MEQ/L Potassium Level 3.6 MEQ/L Chloride Level 106 MEQ/L Carbon Dioxide Level 26.3 MEQ/L Anion Gap 6 MEQ/L Estimat Glomerular Filtration Rate 95 ML/MIN Lipase 133 U/L MDM Medical Decision Making Medical Screen Exam Complete: Yes Emergency Medical Condition: Yes Medical Record Reviewed: Yes (past history confirm, recently treated for presumptive pinworms) Interpretation(s) CBC & BMP Diagram 11/14/17 15:40 Total Protein 7.0, Albumin 3.7, Calcium Level 9.2, Alkaline Phosphatase 45, Aspartate Amino Transf (AST/SGOT) 10 L, Alanine Aminotransferase (ALT/SGPT) 15, Total Bilirubin 0.4 Differential Diagnosis Anemia, hemorrhoid, fissure Narrative Course Will check blood work and reevaluate. Discussed with case management labs wnl, all questions answered. Patient knows that follow up is incumbent on them and to return to the emergency room immediately if new or worsening symptoms develop. Patient given strict return precautions, vitals reviewed and are normal, agrees to further workup as an outpatient which case management will assist with. Diagnosis Primary Impression: Abdominal pain Qualified Codes: R10.9 - Unspecified abdominal pain Patient Instructions: General Instructions Additional Instructions: return as needed, follow with primary Med/Other Pt SpecificInfo: No Change to Meds Disposition: 01 DISCHARGE HOME Condition: Stable Alexa Charles MD Nov 14, 2017 14:40
[2017-11-14 16:02] LABS: AUTOMATED NEUTROPHIL # 3.4 TH/MM3 (1.8-7.7); BASOPHIL % 0.7 % (0.0-2.0); EOSINOPHIL # 0.1 TH/MM3 (0-0.4); EOSINOPHIL % 1.8 % (0.0-4.0); HEMOGLOBIN 12.5 GM/DL (11.6-15.3); LYMPH % 41.3 % (9.0-44.0); LYMPHOCYTE # 2.9 TH/MM3 (1.0-4.8); MEAN CELL VOLUME 94.2 FL (80.0-100.0); MEAN CORPUSCULAR HEMOGLOBIN 31.1 PG (27.0-34.0); MEAN PLATELET VOLUME 7.9 FL (7.0-11.0); MONO % 6.7 % (0.0-8.0); MONOCYTE # 0.5 TH/MM3 (0-0.9); NEUT % 49.5 % (16.0-70.0); PLATELET COUNT 220 TH/MM3 (150-450); RED BLOOD COUNT 4.03 MIL/MM3 (4.00-5.30); WHITE BLOOD COUNT 6.9 TH/MM3 (4.0-11.0)
[2017-11-14 16:14] LABS: CHLORIDE 106 MEQ/L (98-107); SODIUM (NA) 138 MEQ/L (136-145)
[2017-11-14 16:19] LABS: CALCIUM 9.2 MG/DL (8.5-10.1)
[2017-11-14 16:20] LABS: ALBUMIN 3.7 GM/DL (3.4-5.0); BICARBONATE 26.3 MEQ/L (21.0-32.0); BLOOD UREA NITROGEN 6 MG/DL (7-18); GLUCOSE,RANDOM 97 MG/DL (74-106); LIPASE 133 U/L (73-393)
[2017-11-14 16:23] LABS: ALT (GPT) 15 U/L (10-53); AST (GOT) 10 U/L (15-37); CREATININE 0.69 MG/DL (0.50-1.00); GLOMERULAR FILTRATION RATE 95 ML/MIN (>89)
[2017-11-14 16:24] LABS: TOTAL BILIRUBIN ADULT 0.4 MG/DL (0.2-1.0)
[2017-11-14 16:26] LABS: ALKALINE PHOSPHATASE 45 U/L (45-117)
[2017-11-14 17:00] VITALS: BP 115/76
== END 2017-11-14 17:34 | disposition home or self-care (01) ==
LOC: PHED 13:34
DX: R10.9 Unspecified abdominal pain (principal); K62.5 Hemorrhage of anus and rectum
CPT/HCPCS: 80053; 83690; 85025; 99283

== ENCOUNTER 2017-11-17 22:09 | Emergency (ER) | payer OTHER ==
[~2017-11-17] VITALS: Ht 167.6 cm; Wt 75.0 kg
[~2017-11-17 22:09] MED LIST changes: +ADDE30TA PO; -MEBE1CHW14 PO
[2017-11-17 22:21] VITALS: BP 114/67; PULSE 97; RESP 16; TEMP 98.8; O2SAT 99
--- NOTE | 2017-11-17 22:49 | PD ---
HPI Chief Complaint: Medical Clearance Time Seen by Provider: 22:48 Travel History International Travel<30 days: No Contact w/Intl Traveler<30days: No Traveled to known affect area: No 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.) Diabetes: No Diminished Hearing: No Endocrine: No Gastrointestinal Disorders: Yes Genitourinary: Yes (HERPES VIRUS) Hepatitis: No Hiatal Hernia: No Hypertension: No Immune Disorder: No Musculoskeletal: Yes (BACK SPASMS, ARTHRITIS) Neurologic: No Psychiatric: Yes (ANXIETY, CLAUSTRAPHOBIA) Reproductive: No Respiratory: Yes (MARIJUANA ADDICTION) Immunizations Current: Yes Shingles: Yes Thyroid Disease: No Tetanus Vaccination: > 5 Years Influenza Vaccination: No PNEUMOCCOCAL Vaccine (Year): 2 ?: Not LMP: 11/13/2017 : 4 Para: 2 Miscarriage: 1 : 1 Ovarian Cysts: Yes Dilation and Curettage (D&C): Yes Tubal Ligation: Yes (right) Past Surgical History Abdominal Surgery: Yes (umbilical hernia repair) AICD: No Body Medical Devices: UMBILICAL MESH Ear Surgery: No Eye Surgery: No Genitourinary Surgery: No Gynecologic Surgery: Yes (D & C, RIGHT TUBAL LIGATION (CYSTIC)) Joint Replacement: No Oral Surgery: No Pacemaker: No Other Surgery: Yes Social History Alcohol Use: No Tobacco Use: No Substance Use: Yes (pot) Allergies-Medications (Allergen,Severity, Reaction): Coded Allergies: diclofenac (Verified Allergy, Intermediate, Nausea/Vomiting, 11/17/17) etodolac (Verified Allergy, Intermediate, Nausea/Vomiting, 11/17/17) flurbiprofen (Verified Allergy, Intermediate, Nausea/Vomiting, 11/17/17) hydrocodone (Verified Allergy, Intermediate, HIVES, UPSET STOMACH, 11/17/17 ) ibuprofen (Verified Allergy, Intermediate, Nausea/Vomiting, 11/17/17) indomethacin (Verified Allergy, Intermediate, Nausea/Vomiting, 11/17/17) ketoprofen (Verified Allergy, Intermediate, Nausea/Vomiting, 11/17/17) ketorolac (Verified Allergy, Intermediate, UPSET STOMACH, 11/17/17) naproxen (Verified Allergy, Intermediate, Nausea/Vomiting, 11/17/17) oxaprozin (Verified Allergy, Intermediate, Nausea/Vomiting, 11/17/17) tramadol (Verified Allergy, Intermediate, Rash, 11/17/17) metronidazole (Verified Adverse Reaction, Intermediate, UPSET STOMACH, ) Uncoded Allergies: narcotics (Adverse Reaction, Mild, 01/26/17) stomach ache Reported Meds & Prescriptions Reported Meds & Active Scripts Active Spironolactone 25 Mg Tab 25 Mg PO BID Data Data Last Documented VS Vital Signs Date Time Temp Pulse Resp B/P (MAP) Pulse Ox O2 Delivery O2 Flow Rate FiO2 11/17/17 22:21 98.8 97 16 114/67 (83) 99 Angel Escobar MD Nov 17, 2017 22:49
--- NOTE | 2017-11-17 22:54 | PD ---
HPI Chief Complaint: Medical Clearance Time Seen by Provider: 22:48 Travel History International Travel<30 days: No Contact w/Intl Traveler<30days: No Traveled to known affect area: No History of Present Illness HPI Patient was seen for pain warm and gestation 3 times in the emergency room. Today she is back here because she wants a note for clearance to go back to work. She has no other medical complaints. History Past Medical Histgory Narrative Medical List of her past medical history reviewed from the nursing note Tetanus Vaccination: > 5 Years LMP: 11/13/2017 Hx Cancer: No Social History Alcohol Use: No Tobacco Use: No Allergies-Medications (Allergen,Severity, Reaction): Coded Allergies: diclofenac (Verified Allergy, Intermediate, Nausea/Vomiting, 11/17/17) etodolac (Verified Allergy, Intermediate, Nausea/Vomiting, 11/17/17) flurbiprofen (Verified Allergy, Intermediate, Nausea/Vomiting, 11/17/17) hydrocodone (Verified Allergy, Intermediate, HIVES, UPSET STOMACH, 11/17/17 ) ibuprofen (Verified Allergy, Intermediate, Nausea/Vomiting, 11/17/17) indomethacin (Verified Allergy, Intermediate, Nausea/Vomiting, 11/17/17) ketoprofen (Verified Allergy, Intermediate, Nausea/Vomiting, 11/17/17) ketorolac (Verified Allergy, Intermediate, UPSET STOMACH, 11/17/17) naproxen (Verified Allergy, Intermediate, Nausea/Vomiting, 11/17/17) oxaprozin (Verified Allergy, Intermediate, Nausea/Vomiting, 11/17/17) tramadol (Verified Allergy, Intermediate, Rash, 11/17/17) metronidazole (Verified Adverse Reaction, Intermediate, UPSET STOMACH, ) Uncoded Allergies: narcotics (Adverse Reaction, Mild, 01/26/17) stomach ache Comments List of her allergies reviewed from the nursing note Reported Meds & Prescriptions Reported Meds & Active Scripts Active Spironolactone 25 Mg Tab 25 Mg PO BID Narrative Medication List of her home medications reviewed from the nursing note Review of Systems Except as stated in HPI: all other systems reviewed are Neg Physical Exam Narrative GENERAL: Awake, alert, no obvious distress SKIN: Focused skin assessment warm/dry. HEAD: Atraumatic. Normocephalic. EYES: Pupils equal and round. No scleral icterus. No injection or drainage. ENT: No nasal bleeding or discharge. Mucous membranes pink and moist. NECK: Trachea midline. No JVD. CARDIOVASCULAR: Regular rate and rhythm. No murmur appreciated. RESPIRATORY: No accessory muscle use. Clear to auscultation. Breath sounds equal bilaterally. GASTROINTESTINAL: Abdomen soft, non-tender, nondistended. Hepatic and splenic margins not palpable. MUSCULOSKELETAL: No obvious deformities. No clubbing. No cyanosis. No edema. NEUROLOGICAL: Awake and alert. No obvious cranial nerve deficits. Motor grossly within normal limits. Normal speech. PSYCHIATRIC: Appropriate mood and affect; insight and judgment normal. Data Data Last Documented VS Vital Signs Date Time Temp Pulse Resp B/P (MAP) Pulse Ox O2 Delivery O2 Flow Rate FiO2 11/17/17 22:21 98.8 97 16 114/67 (83) 99 Orders Orders Ed Discharge Order (11/17/17 22:55) MDM Medical Screen Exam Complete: Yes Emergency Medical Condition: No Primary Impression: needs a work note Disposition: 01 DISCHARGE HOME Condition: Stable Angel Escobar MD Nov 17, 2017 22:54
== END 2017-11-17 23:22 | disposition home or self-care (01) ==
LOC: PHEFT 22:09
DX: Z00.8 Encounter for other general examination (principal); Z88.8 Allergy status to other drugs, medicaments and biological substances; Z79.899 Other long term (current) drug therapy
CPT/HCPCS: 99281

== ENCOUNTER 2018-01-30 11:25 | Emergency (ER) | payer OTHER ==
[~2018-01-30] VITALS: Ht 167.6 cm; Wt 76.1 kg
[~2018-01-30 11:25] MED LIST changes: -ADDE30TA PO; -MEDR150I IM
[2018-01-30 11:27] VITALS: BP 119/62; PULSE 106; RESP 16; TEMP 97.9; O2SAT 100
--- NOTE | 2018-01-30 12:03 | PD ---
HPI Chief Complaint: Special Education Curriculum Specialist Problem/Complaint Time Seen by Provider: 11:49 Travel History International Travel<30 days: No Contact w/Intl Traveler<30days: No Traveled to known affect area: No History of Present Illness HPI 37-year-old female complains of vaginal discharge for one day. It was first noticed yesterday. It has a black and white coloration. No dysuria. No fever or vomiting. Last menstruation was more than several months prior due to presence of a Provera shot. Patient denies sexual activity. Associated symptoms include low back pain, chronic in nature. 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.) Diabetes: No Diminished Hearing: No Endocrine: No Gastrointestinal Disorders: Yes Genitourinary: Yes (HERPES VIRUS) Hepatitis: No Hiatal Hernia: No Hypertension: No Immune Disorder: No Musculoskeletal: Yes (BACK SPASMS, ARTHRITIS) Neurologic: No Psychiatric: Yes (ANXIETY, CLAUSTRAPHOBIA) Reproductive: No Respiratory: Yes (MARIJUANA ADDICTION) Immunizations Current: Yes Shingles: Yes Thyroid Disease: No Tetanus Vaccination: Unknown Influenza Vaccination: No PNEUMOCCOCAL Vaccine (Year): 2 ?: Not LMP: tubal ligation : 4 Para: 2 Miscarriage: 1 : 1 Ovarian Cysts: Yes Dilation and Curettage (D&C): Yes Tubal Ligation: Yes (right) Past Surgical History Abdominal Surgery: Yes (umbilical hernia repair) AICD: No Body Medical Devices: UMBILICAL MESH Ear Surgery: No Eye Surgery: No Genitourinary Surgery: No Gynecologic Surgery: Yes (D & C, RIGHT TUBAL LIGATION (CYSTIC)) Joint Replacement: No Oral Surgery: No Pacemaker: No Other Surgery: Yes Social History Alcohol Use: No Tobacco Use: No Substance Use: Yes (pot) Allergies-Medications (Allergen,Severity, Reaction): Coded Allergies: diclofenac (Verified Allergy, Intermediate, Nausea/Vomiting, 01/30/18) etodolac (Verified Allergy, Intermediate, Nausea/Vomiting, 01/30/18) flurbiprofen (Verified Allergy, Intermediate, Nausea/Vomiting, 01/30/18) hydrocodone (Verified Allergy, Intermediate, HIVES, UPSET STOMACH, 01/30/18 ) ibuprofen (Verified Allergy, Intermediate, Nausea/Vomiting, 01/30/18) indomethacin (Verified Allergy, Intermediate, Nausea/Vomiting, 01/30/18) ketoprofen (Verified Allergy, Intermediate, Nausea/Vomiting, 01/30/18) ketorolac (Verified Allergy, Intermediate, UPSET STOMACH, 01/30/18) naproxen (Verified Allergy, Intermediate, Nausea/Vomiting, 01/30/18) oxaprozin (Verified Allergy, Intermediate, Nausea/Vomiting, 01/30/18) tramadol (Verified Allergy, Intermediate, Rash, 01/30/18) metronidazole (Verified Adverse Reaction, Intermediate, UPSET STOMACH, 08/09) Uncoded Allergies: narcotics (Adverse Reaction, Mild, 01/26/17) stomach ache Reported Meds & Prescriptions Reported Meds & Active Scripts Active Spironolactone 25 Mg Tab 25 Mg PO BID Review of Systems Except as stated in HPI: all other systems reviewed are Neg General / Constitutional: No: Fever Cardiovascular: No: Chest Pain or Discomfort Physical Exam Narrative GENERAL: 37-year-old female pleasant well-nourished well-developed no acute distress Vital Signs Date Time Temp Pulse Resp B/P (MAP) Pulse Ox O2 Delivery O2 Flow Rate FiO2 01/30/18 11:27 97.9 106 16 119/62 (81) 100 SKIN: Warm and dry. HEAD: Atraumatic. Normocephalic. EYES: Pupils equal and round. No scleral icterus. No injection or drainage. ENT: No nasal bleeding or discharge. Mucous membranes pink and moist. NECK: Trachea midline. No JVD. CARDIOVASCULAR: Regular rate and rhythm. RESPIRATORY: No accessory muscle use. Clear to auscultation. Breath sounds equal bilaterally. GASTROINTESTINAL: Abdomen soft, non-tender, nondistended. Hepatic and splenic margins not palpable. MUSCULOSKELETAL: Extremities without clubbing, cyanosis, or edema. No obvious deformities. NEUROLOGICAL: Awake and alert. No obvious cranial nerve deficits. Motor grossly within normal limits. Five out of 5 muscle strength in the arms and legs. Normal speech. PSYCHIATRIC: Appropriate mood and affect; insight and judgment normal. Data Data Last Documented VS Vital Signs Date Time Temp Pulse Resp B/P (MAP) Pulse Ox O2 Delivery O2 Flow Rate FiO2 01/30/18 16:47 01/30/18 13:45 92 20 100 Room Air 01/30/18 11:27 97.9 Orders Orders Complete Blood Count With Diff (01/30/18 11:54) Basic Metabolic Panel (Bmp) (01/30/18 11:54) Gc And Chlamydia Pcr (01/30/18 11:54) Wet Prep Profile (01/30/18 11:54) Urinalysis - C+S If Indicated (01/30/18 11:54) Ed Urine Pregnancytest Poc (01/30/18 11:54) Us Pelvis Comp Special Education Curriculum Specialist/Non-Preg (01/30/18 ) Ct Abd/Pel W Iv Contrast(Rout) (01/30/18 ) Oral Contrast - Adult (01/30/18 13:24) Diatrizoate Liq ( Gastroview Liq) (01/30/18 14:07) Iohexol 350 Inj (Omnipaque 350 Inj) (01/30/18 15:34) Mandatory Outpatient Referral (01/30/18 16:20) Ed Discharge Order (01/30/18 16:37) Labs Laboratory Tests Test 01/30/18 12:45 01/30/18 13:00 White Blood Count 6.2 TH/MM3 Red Blood Count 3.93 MIL/MM3 Hemoglobin 12.2 GM/DL Hematocrit 37.0 % Mean Corpuscular Volume 94.3 FL Mean Corpuscular Hemoglobin 31.0 PG Mean Corpuscular Hemoglobin Concent 32.9 % Red Cell Distribution Width 12.0 % Platelet Count 220 TH/MM3 Mean Platelet Volume 8.3 FL Neutrophils (%) (Auto) 47.7 % Lymphocytes (%) (Auto) 40.1 % Monocytes (%) (Auto) 8.4 % Eosinophils (%) (Auto) 2.6 % Basophils (%) (Auto) 1.2 % Neutrophils # (Auto) 2.9 TH/MM3 Lymphocytes # (Auto) 2.5 TH/MM3 Monocytes # (Auto) 0.5 TH/MM3 Eosinophils # (Auto) 0.2 TH/MM3 Basophils # (Auto) 0.1 TH/MM3 CBC Comment DIFF FINAL Differential Comment Urine Collection Type CLEAN CATCH Urine Color OTHER Urine Turbidity CLEAR Urine pH 6.5 Urine Specific [place] LESS/EQUAL 1.005 Urine Protein NEG mg/dL Urine Glucose (UA) NEG mg/dL Urine Ketones NEG mg/dL Urine Occult Blood NEG Urine Nitrite NEG Urine Bilirubin NEG Urine Urobilinogen 0.2 MG/DL Urine Leukocyte Esterase NEG Urine Squamous Epithelial Cells 0-5 /hpf Urine Amorphous Sediment FEW Microscopic Urinalysis Comment CULT NOT INDICATED Urine Collection Time 1245 Blood Urea Nitrogen 5 MG/DL Creatinine 0.60 MG/DL Random Glucose 78 MG/DL Calcium Level 8.6 MG/DL Sodium Level 142 MEQ/L Potassium Level 3.8 MEQ/L Chloride Level 111 MEQ/L Carbon Dioxide Level 25.5 MEQ/L Anion Gap 6 MEQ/L Estimat Glomerular Filtration Rate 111 ML/MIN Clue Cells (Wet Prep) NONE SEEN Vaginal Trichomonas (Wet Prep) NONE SEEN Vaginal Yeast (Wet Prep) NONE SEEN Chlamydia trachomatis DNA (PCR) NOT DETECTED Neisseria gonorrhoeae DNA (PCR) NOT DETECTED MDM Medical Decision Making Medical Screen Exam Complete: Yes Emergency Medical Condition: Yes Medical Record Reviewed: Yes Differential Diagnosis IUP, UTI, ectopic , ov torsion, appendicitis, TOA, cervicitis, BV, Trichomoniasis, ov cyst, hernia, mittelschmerz, pain from menstruation Narrative Course CBC & BMP Diagram 01/30/18 12:45 Calcium Level 8.6 UA: No UTI exam: no adnexal mass or TTP; minimal discharge with brown/martinez specules of debris Wet prep: negative x 3 Last Impressions Pelvis Ultrasound 01/30/18 0000 Signed Impressions: Service Date/Time: Tuesday, January 30, 2018 12:15 - CONCLUSION: Negative pelvic ultrasound examination. There is a 2.2 cm simple cyst at the right ovary likely related to a follicle. Glen Walker MD Etiology unclear. Case d/w Dr Vee. Pt ok for discharge home with follow up with Dr Vee. Diagnosis Primary Impression: Vaginal discharge Referrals: Matthew Vee MD 2 days Med/Other Pt SpecificInfo: No Change to Meds Disposition: 01 DISCHARGE HOME Condition: Stable Shon Patel MD Jan 30, 2018 12:02
--- NOTE | 2018-01-30 12:53 | RADRPT ---
EXAM DATE/TIME: 01/30/2018 12:15 [facility] COMPARISON: No previous studies available for comparison. INDICATIONS : Lower back pain and vaginal discharge. MEDICAL HISTORY : Gastroesophageal reflux disease. Umbilical hernia repair. SURGICAL HISTORY : Tubal ligation. Dilation and curettage. Right knee surgery. Left distal radial ORIF. ENCOUNTER: Initial ACUITY: 1 day PAIN SCORE: 1/10 LOCATION: Bilateral pelvis MEASUREMENTS: UTERUS: 6.9 x 3.9 x 5.0 cm ENDOMETRIAL STRIPE: 7 mm RIGHT OVARY: 4.5 x 2.8 x 2.5 cm LEFT OVARY: 2.9 x 2.1 x 2.0 cm FINDINGS: UTERUS: The myometrium has homogeneous echotexture without mass. RIGHT OVARY: There is a 2.2 cm simple cyst seen at the right ovary likely related to a follicle. Arterial flow is seen. LEFT OVARY: Ovary contains no mass or significant cystic lesion. Arterial flow is seen. MISCELLANEOUS: No free fluid. CONCLUSION: Negative pelvic ultrasound examination. There is a 2.2 cm simple cyst at the right ovary likely relat ed to a follicle. Glen Walker MD on January 30, 2018 at 12:50 Board Certified Radiologist. This report was verified electronically.
[2018-01-30 13:04] LABS: BILIRUBIN, URINE NEG (NEG); BLOOD, URINE NEG (NEG); GLUCOSE,URINE NEG (NEG); KETONE, URINE NEG (NEG); NITRITE,URINE NEG (NEG); PH, URINE 6.5 (5.0-8.5); URINE COLOR OTHER (YELLW/STRAW); URINE LEUKOCYTE ESTERASE NEG (NEG)
[2018-01-30 13:06] LABS: AUTOMATED NEUTROPHIL # 2.9 TH/MM3 (1.8-7.7); BASOPHIL # 0.1 TH/MM3 (0-0.2); BASOPHIL % 1.2 % (0.0-2.0); EOSINOPHIL # 0.2 TH/MM3 (0-0.4); EOSINOPHIL % 2.6 % (0.0-4.0); HEMOGLOBIN 12.2 GM/DL (11.6-15.3); LYMPH % 40.1 % (9.0-44.0); LYMPHOCYTE # 2.5 TH/MM3 (1.0-4.8); MEAN CELL VOLUME 94.3 FL (80.0-100.0); MEAN CORPUSCULAR HGB CONC 32.9 % (32.0-36.0); MEAN PLATELET VOLUME 8.3 FL (7.0-11.0); MONO % 8.4 % (0.0-8.0); MONOCYTE # 0.5 TH/MM3 (0-0.9); NEUT % 47.7 % (16.0-70.0); PLATELET COUNT 220 TH/MM3 (150-450); RED BLOOD COUNT 3.93 MIL/MM3 (4.00-5.30); WHITE BLOOD COUNT 6.2 TH/MM3 (4.0-11.0)
[2018-01-30 13:08] LABS: BICARBONATE 25.5 MEQ/L (21.0-32.0); CALCIUM 8.6 MG/DL (8.5-10.1)
[2018-01-30 13:12] LABS: CREATININE 0.6 MG/DL (0.50-1.00)
[2018-01-30 13:24] LABS: AMORPHOUS SEDIMENT, URINE FEW; SQUAMOUS EPITHELIAL CELL URINE 0-5 /hpf (0-5)
[2018-01-30 13:45] VITALS: BP 121/68; PULSE 92; RESP 20; O2SAT 100
[2018-01-30] MEDS ORDERED: DIATRIZOATE MEGLUM/DIATRIZOATE SOD 9 ML CUP ONE (14:07)
[2018-01-30] MEDS ORDERED: IOHEXOL 350 MG/ML 10 ML VIAL (for RAD DIAG) IVCONTRAST ONE (15:34)
--- NOTE | 2018-01-30 16:03 | RADRPT ---
EXAM DATE/TIME: 01/30/2018 15:28 [place] COMPARISON: No previous studies available for comparison. INDICATIONS : Lower back pain and vaginal discharge. Evaluate for colovesical fistula. IV CONTRAST: 95 cc Omnipaque 350 (iohexol) IV ORAL CONTRAST: Prescribed oral contrast ingested. RADIATION DOSE: 12.83 CTDIvol (mGy) MEDICAL HISTORY : None SURGICAL HISTORY : Umbilical hernia repair. Tubal ligation. ENCOUNTER: Initial ACUITY: 2 days PAIN SCALE: 6/10 LOCATION: lower quadrant TECHNIQUE: Volumetric scanning of the abdomen and pelvis was performed. Using automated exposure control and ad justment of the mA and/or kV according to patient size, radiation dose was kept as low as reasonably achievable to obtain optimal diagnostic quality images. DICOM format image data is available electro nically for review and comparison. FINDINGS: LOWER LUNGS: The visualized lower lungs are clear. LIVER: Homogeneous density without lesion. There is no dilation of the biliary tree. No calcified gallston es. SPLEEN: Normal size without lesion. PANCREAS: Within normal limits. KIDNEYS: Normal in size and shape. Tiny 2 mm calcified nonobstructing upper pole left renal calculus is noted . Subcentimeter cortical cysts are noted bilaterally. No solid renal masses noted. There is no hydron ephrosis. ADRENAL GLANDS: Within normal limits. VASCULAR: There is no aortic aneurysm. BOWEL/MESENTERY: Uncomplicated colonic diverticulosis is noted. No acute diverticulitis is noted. The appendix is norm al. ABDOMINAL WALL: There is a right paracentral ventral abdominal wall hernia containing only fat. RETROPERITONEUM: There is no lymphadenopathy. BLADDER: No wall thickening or mass. No air is noted within the urinary bladder. REPRODUCTIVE: Within normal limits. INGUINAL: There is no lymphadenopathy. Small bilateral inguinal hernias containing only fat are noted. MUSCULOSKELETAL: Within normal limits for patient age. CONCLUSION: 1. No CT evidence of colovesical fistula. No evidence of acute diverticulitis or air within the urina ry bladder. 2. Uncomplicated colonic diverticulosis. 3. Small bilateral inguinal hernias containing only fat. 4. Right paracentral ventral abdominal wall hernia containing only fat. 5. Tiny 2 mm calcified nonobstructing upper pole left renal calculus. 6. Subcentimeter bilateral renal cysts. Ventura He MD on January 30, 2018 at 15:52 Board Certified Radiologist. This report was verified electronically.
== END 2018-01-30 16:48 | disposition home or self-care (01) ==
LOC: PHED 11:25
DX: N89.8 Other specified noninflammatory disorders of vagina (principal); G89.29 Other chronic pain; M54.5 Low back pain; F41.8 Other specified anxiety disorders; M19.90 Unspecified osteoarthritis, unspecified site; F12.90 Cannabis use, unspecified, uncomplicated
CPT/HCPCS: 74177; 76856; 80048; 81001; 84703; 85025; 87210; 87491; 87591; 99285; Q9963; Q9967